=== PATIENT | male | born 1965 | race Hispanic/Latino ===

== ENCOUNTER → 2023-02-21 | Outpatient (CLI) | payer BC | END | disposition home or self-care (01) | LOC: RAH 10:00 | PROVIDERS: ATTEND Internal Medicine Gastroenterology | DX: R10.10 Upper abdominal pain, unspecified (principal) | CPT/HCPCS: 78264; A9541 ==

== ENCOUNTER → 2023-12-21 | Outpatient (CLI) | payer BC | END | disposition home or self-care (01) | LOC: RAH 12:49 | PROVIDERS: ATTEND Nurse Practitioner Family | DX: M19.011 Primary osteoarthritis, right shoulder (principal); M25.511 Pain in right shoulder; M25.811 Other specified joint disorders, right shoulder; M77.8 Other enthesopathies, not elsewhere classified | CPT/HCPCS: 73221 ==

== ENCOUNTER → 2024-09-26 | Outpatient (CLI) | payer BC ==
--- NOTE | 2024-09-26 16:25 | HMCIMG ---
US SOFT TISSUE NECK REASON: LOCALIZED SWELLING. COMPARISON: None TECHNIQUE: Soft tissue neck ultrasound study was performed. FINDINGS: Multiple left cervical lymph nodes are seen posteriorly at the region of interest measuring 17 x 6 x 11 mm. No evidence of mass lesion is seen of the right. IMPRESSION: Left cervical lymph nodes.
== END | disposition home or self-care (01) ==
LOC: RAH 14:26
PROVIDERS: ATTEND Nurse Practitioner Family
DX: R22.9 Localized swelling, mass and lump, unspecified (principal)
CPT/HCPCS: 76536

== ENCOUNTER → 2024-10-30 | Outpatient (CLI) | payer BC ==
[~2024-10-30] MED LIST: IOHEXOL 350 MG/ML 100ML INFUS..BTL IV ONE
--- NOTE | 2024-10-30 12:12 | HMCIMG ---
CT NECK WITHOUT AND WITH CONTRAST INDICATION: Generalized enlarged lymph nodes evaluation. Left neck base swelling for one month. TECHNIQUE: 3D helical CT acquisition images were obtained from the level of the skull base to the thoracic inlet before and after the intravenous administration of 75 mL of Omnipaque 350 IV contrast material. Coronal and sagittal reformats also included. CT was performed with one or more of the following dose reduction techniques: Automated exposure control, adjustment of the mA and/or kV according to patient size, or use of iterative reconstruction technique. COMPARISON: None FINDINGS: The visualized portions of the brain, skull base, and orbits appear normal. 2.0 cm posterior right maxillary sinus mucus retention cyst, and mild left maxillary sinus mucosal thickening. The visualized nasopharynx and nasal cavity appear normal. The oral cavity, oropharynx, and hypopharynx appear normal. The cervical esophagus and visualized portion of the thoracic esophagus appear normal. The larynx and visualized trachea appear normal. The extramucosal spaces of the neck appear normal. The parotid and submandibular glands appear normal. The thyroid gland appears normal. No cervical lymphadenopathy noted. The visualized osseous structures, vasculature, and soft tissues appear normal. The upper mediastinum and lung apices appear normal. IMPRESSION: No evidence for lymphadenopathy.
== END | disposition home or self-care (01) ==
LOC: RAH 07:44
PROVIDERS: ATTEND Nurse Practitioner Family
DX: R59.1 Generalized enlarged lymph nodes (principal); J34.1 Cyst and mucocele of nose and nasal sinus; J34.89 Other specified disorders of nose and nasal sinuses
CPT/HCPCS: 70492; Q9967